=== PATIENT | female | born 1960 | race Caucasian/White ===

== ENCOUNTER → 2021-03-23 | Day surgery (SDC) | payer BC ==
[~2021-03-23] MED LIST: Ketamine 200 MG/20 ML MDV ONE; Propofol 200 MG/20 ML SDV ONE; fentaNYL 100 MCG/2 ML SDV ONE
[2021-03-23] MEDS: Lactated Ringers 1,000 ML IV SCH (10:13)
[2021-03-23 11:44] VITALS: BP 125/72; PULSE 72
--- NOTE | 2021-03-23 12:56 | OR ---
DATE OF OPERATION: 03/23/2021 PREOPERATIVE DIAGNOSIS: FAMILY HISTORY OF COLON CANCER (FATHER AND BROTHER). POSTOPERATIVE DIAGNOSIS: FAMILY HISTORY OF COLON CANCER (FATHER AND BROTHER). SURGEON: Facundo Giles MD PROCEDURE: TOTAL COLONOSCOPY. ANESTHESIA: MAC. SPECIMEN: None. FINDINGS: Significant pandiverticulosis. INDICATIONS: This 60-year-old female has a personal family history of colon cancer. Both her father and brother have had cancer. She has had prior colonoscopies that have been free of polyps. DESCRIPTION OF PROCEDURE: After adequate preparation, a colonoscope was inserted into the rectum. This was somewhat difficult to negotiate all the way to the cecum. I eventually was able to get there and identify the ileocecal valve and see a light shining through the right lower quadrant. She has significant diverticulosis throughout the entire colon as many diverticula actually on the right side as the left side. The bowel prep, however, was very good. On withdrawal of the scope, I was able to have a good examination of the colon. There were no polyp, growths, or tumors noted. Anal and rectal examination were also normal. Air was suctioned from the colon and the scope removed. BPB/MODL /[id number]
== END ==
LOC: CC.SDS 10:00
PROVIDERS: ATTEND Surgery
DX: Z12.11 Encounter for screening for malignant neoplasm of colon (principal); K57.30 Diverticulosis of large intestine without perforation or abscess without bleeding; K21.9 Gastro-esophageal reflux disease without esophagitis; I10 Essential (primary) hypertension; E78.5 Hyperlipidemia, unspecified; Z79.82 Long term (current) use of aspirin; Z80.0 Family history of malignant neoplasm of digestive organs; Z79.899 Other long term (current) drug therapy; Z98.890 Other specified postprocedural states
CPT/HCPCS: J2704; J3010; J7120